=== PATIENT | female | born 2005 | race Two or more races ===

== ENCOUNTER 2025-08-12 17:40 | Inpatient (IN) | payer MEDICAID ==
[2025-08-12] MEDS ORDERED: Carboprost Tromethamine 250 MCG/1 mL Vial IM PRN (18:36)
[2025-08-12] MEDS ORDERED: Sodium Chloride 0.9% 10 ML Syringe FLUSH PRN (18:36)
[2025-08-12] MEDS ORDERED: Sodium Chloride 0.9% 2.5 ML Syringe FLUSH PRN (18:36)
[2025-08-12] MEDS ORDERED: Water For Irrigation,Sterile 1,000 ML Container IRR PRN (18:36)
[2025-08-12] MEDS ORDERED: Oxytocin/0.9 % Sodium Chloride 30 UNIT/500 ML BAG IV SCH (18:45)
[2025-08-12 19:55] LABS: CREATININE,URINE RAND 143.5 mg/dL; PROTEIN CREATININE RATIO,URINE 0.4; PROTEIN,URINE RANDOM 54.5 mg/dL (<11.9)
[2025-08-12] MEDS: Lactated Ringers 1,000 ML IV SCH (20:10)
[2025-08-12 20:33] LABS: MEAN PLATELET VOLUME 10.0 fL (9.4-12.3); NRBC ABSOLUTE 0.00 K/uL (0.00-0.02); NRBC PERCENT 0.0 /100WBC (0.0-0.2); PLATELET COUNT,PLT 308 K/uL (150-400); RED BLOOD CELL COUNT 4.39 M/uL (4.10-5.30); WHITE BLOOD CELL COUNT,WBC 14.86 K/uL (3.9-11.3)
[2025-08-12 20:59] LABS: A/G RATIO 0.7 (0.9-1.6); ALANINE AMINOTRANSFERASE,ALT 28 IU/L (14-63); ASPARTATE AMNIOTRANSFERASE,AST 17 IU/L (15-37); BILIRUBIN TOTAL 0.5 mg/dL (0.2-1.0); BLOOD UREA NITROGEN,BUN 5 mg/dL (7.0-18.0); CARBON DIOXIDE,CO2 21.9 mmol/L (21.0-32.0); CHLORIDE,CL 102 mmol/L (98-107); CREATININE 0.6 mg/dL (0.6-1.0); GLUCOSE RANDOM 82 mg/dL (74-106); POTASSIUM,K 3.3 mmol/L (3.5-5.1); PROTEIN TOTAL,TP 7.5 g/dL (6.4-8.2); SODIUM,NA 136 mmol/L (136-145)
[2025-08-12 21:04] LABS: ESTIMATED GFR 131 mL/min (>60)
[2025-08-12] MEDS ORDERED: Misoprostol 50 MCG (1/2 of 100 MCG) Tab VAG ONE (21:17)
[2025-08-12] MEDS: Butorphanol 1 MG/ML SDV IVPUSH PRN (21:35)
[2025-08-12] MEDS: Misoprostol 25 MCG (1/4 of 100 MCG) Tab VAG ONE (21:35)
[2025-08-12] MEDS: Ropivacaine HCl/PF 400 MG in Premix Bag 1 BAG EPIDUR SCH (22:31)
[2025-08-12] MEDS ORDERED: ePHEDrine 50 MG/ML SDV IVPUSH PRN (22:48)
[2025-08-12] MEDS ORDERED: dexmedeTOMIDine HCl 200 MCG/2 ML SDV EPIDUR SCH (23:00)
[2025-08-13] MEDS: Oxytocin/0.9 % Sodium Chloride 30 UNIT/500 ML BAG IV SCH (00:04)
[2025-08-13] MEDS ORDERED: Sodium Chloride 0.9% 10 ML Syringe FLUSH PRN (05:09)
[2025-08-13] MEDS ORDERED: Calcium Gluconate 10% 1 GM/10 ML SDV IV PRN (05:09)
[2025-08-13] MEDS ORDERED: Sodium Chloride 0.9% 2.5 ML Syringe FLUSH PRN (05:09)
[2025-08-13] MEDS: Labetalol 100 MG/20 ML MDV IVPUSH PRN (05:25)
[2025-08-13] MEDS: Magnesium Sulfate 4 GM/100 mL 4 GM in Premix Bag 1 BAG IV ONE (05:35)
[2025-08-13] MEDS: Magnesium Sulfate 2 GM/50 mL 2 GM in Premix Bag 1 BAG IV ONE (06:08)
[2025-08-13] MEDS: Magnesium Sulfate 20 GM/500mL 20 GM/500 ML BAG IV SCH (06:24)
[2025-08-13] MEDS: dexmedeTOMIDine HCl 200 MCG/2 ML SDV ONE (07:49)
[2025-08-13] MEDS: Ropivacaine HCl/PF 200 ML ONE (07:50)
[2025-08-13] MEDS ORDERED: Ondansetron 4 MG/2 ML SDV IVPUSH PRN (16:19)
[2025-08-13] MEDS ORDERED: Aluminum Hydroxide/Magnesium Hydroxide/Simethicone Susp 30 ML Cup PO PRN (16:19)
[2025-08-13] MEDS: Witch Hazel Medicated Pads 40/Jar TOP PRN (16:50)
[2025-08-13] MEDS: Lanolin 100% Cream 7 GM Tube TOP PRN (16:51)
[2025-08-13] MEDS: Benzocaine/Menthol 20%-0.5% Spray 78 GM Cannister TOP PRN (16:51)
[2025-08-13 17:10] LABS: PH,UMBILICAL ARTERIAL 7.3 (7.18-7.38); PH,UMBILICAL VENOUS 7.36 (7.25-7.45)
[2025-08-14 06:04] LABS: BASOPHILS ABSOLUTE AUTO 0.04 K/uL (0.00-0.20); BASOPHILS PERCENT AUTO 0.2 % (0.0-1.0); EOSINOPHILS ABSOLUTE AUTO 0.12 K/uL (0.00-0.45); EOSINOPHILS PERCENT AUTO 0.6 % (0.0-6.0); IMMATURE GRAN ABSOLUTE AUTO 0.07 K/uL (0.00-0.05); IMMATURE GRAN PERCENT AUTO 0.4 % (0.0-0.4); LYMPHOCYTES ABSOLUTE AUTO 2.73 K/uL (1.00-4.80); LYMPHOCYTES PERCENT AUTO 14.2 % (24.0-44.0); MEAN PLATELET VOLUME 10.0 fL (9.4-12.3); MONOCYTES ABSOLUTE AUTO 0.68 K/uL (0.00-0.80); MONOCYTES PERCENT AUTO 3.5 % (0.0-8.0); NEUTROPHILS ABSOLUTE AUTO 15.52 K/uL (1.80-7.70); NEUTROPHILS PERCENT AUTO 81.1 % (41.0-71.0); NRBC ABSOLUTE 0.00 K/uL (0.00-0.02); NRBC PERCENT 0.0 /100WBC (0.0-0.2); PLATELET COUNT,PLT 272 K/uL (150-400); RED BLOOD CELL COUNT 4.18 M/uL (4.10-5.30); WHITE BLOOD CELL COUNT,WBC 19.16 K/uL (3.9-11.3)
[2025-08-14 06:37] LABS: A/G RATIO 0.6 (0.9-1.6); ALANINE AMINOTRANSFERASE,ALT 18.0 IU/L (14-63); ASPARTATE AMNIOTRANSFERASE,AST 15.0 IU/L (15-37); BILIRUBIN TOTAL 0.5 mg/dL (0.2-1.0); BLOOD UREA NITROGEN,BUN 7.0 mg/dL (7.0-18.0); CARBON DIOXIDE,CO2 24.3 mmol/L (21.0-32.0); CHLORIDE,CL 107.0 mmol/L (98-107); CREATININE 0.6 mg/dL (0.6-1.0); EST CRCL DRUG DOSING (CG) 122.69 mL/min; GLUCOSE RANDOM 80.0 mg/dL (74-106); POTASSIUM,K 3.0 mmol/L (3.5-5.1); PROTEIN TOTAL,TP 6.1 g/dL (6.4-8.2); SODIUM,NA 140.0 mmol/L (136-145)
[2025-08-14 06:38] LABS: ESTIMATED GFR 131.0 mL/min (>60)
== END 2025-08-15 15:52 | disposition home or self-care (01) | DRG 807 ==
LOC: MW.OB 17:40 → MW.OBCHECK 17:40 → MW.OB 18:36 → MW.OBCHECK 18:45 → OBSVTOIN 08-13 16:19 → MW.OB 08-13 20:41
PROVIDERS: ADMIT Obstetrics & Gynecology; ATTEND Obstetrics & Gynecology
PROC: 10E0XZZ Delivery of Products of Conception, External Approach (ICD-10-PCS; principal; 2025-08-13)
PROC: 3E0R3BZ Introduction of Anesthetic Agent into Spinal Canal, Percutaneous Approach (ICD-10-PCS; 2025-08-13)
PROC: 10H07YZ Insertion of Other Device into Products of Conception, Via Natural or Artificial Opening (ICD-10-PCS; 2025-08-13)
DX: O14.14 Severe pre-eclampsia complicating childbirth (principal); Z37.0 Single live birth; O99.214 Obesity complicating childbirth; Z3A.38 38 weeks gestation of pregnancy; Z79.899 Other long term (current) drug therapy; Z88.2 Allergy status to sulfonamides
CPT/HCPCS: 01967; 36415; 51701; 51702; 59025; 59409; 76815-26; 76816; 80053; 82570; 82803; 84156; 85025; 85027; 86592; 86850; 86900; 86901; A9270-GY; J0595; J0665; J1920; J2371; J2590; J2795; J3475; J7120